=== PATIENT | male | born 1940 | race Caucasian/White ===

== ENCOUNTER 2018-12-16 13:18 | Inpatient (IN) | payer OTHER ==
[~2018-12-16] VITALS: Ht 182.9 cm; Wt 78.6 kg
--- NOTE | ~2018-12-16 | EMS ---
[address] [address] EMS Patient Care Report Name: DAKOTA DELGADILLO Room #: 201-P ADM IN M.R.#: [id number] Admission: 12/16/18 Attend Phys: Danny Saenz MD Discharge: Date of : 44 Report #: [id number] THIS REPORT FOR: //name// Report Transmitted: 12/16/2018 18:19 EMS Care Summary [facility] MED-ACT Incident [id number] @ 12/16/2018 12:37 Incident Location [address] [place] [address] Patient RICKY QUINN Male, 78 Years 1940 Patient Address [address] [place] [address] Patient History None Reported, Patient Allergies No known allergies, Patient Medications None Reported, Chief Complaint weakness Disposition Transported No Lights/[place] Dispatch Reason Stroke/CVA Transported To [facility] Narrative C weakness H Called after a friend came over and found him on the couch and needed help to the bathroom, while he was in there the friend went to clean up the couch since [address] [address] EMS Patient Care Report Name: DAKOTA DELGADILLO Room #: 201-P ADM IN Indira.#: [id number] Admission: 12/16/18 Attend Phys: Danny Saenz MD Discharge: Date of : 42 Report #: [id number] it reeked of old urine. Then the pt slid off of the toilet and needed help up again. He noticed he was very weak. the pt states he has been weak for several days and has had painful urination for about a week. He denies fever, chills, n/v, dark tarry or bloody stools, head ache, dizziness, c/p, sob, abd pain, injury from his fall A R assess vs moved to the stair chair then moved to the cot down 2 flights of stairs, then moved to the cot and in to the unit. 21 lead IV transport bio com no changes to [facility] ER 7 T transported to [facility] ER per pt request D wheeled in to the ER to bed 7 lifted over report to RN Initial Vitals @13:03P: 98,R: 28,BP: 162/103,GCS: 15,Temp: 98.9F,Glucose: 158,SpO2: 95,Revised Trauma: 12, @12:57P: 104,LA Suspected: false @12:42P: 108,R: 32,BP: 119/79,Pain: 0/10,GCS: 15,SpO2: 95,Revised Trauma: 11, @13:08P: 97,R: 24,BP: 162/103,GCS: 15,SpO2: 96,Revised Trauma: 12, Assessments @12:45MENTAL:Person Oriented,Time Oriented,Place Oriented,Event Oriented,SKIN:HEENT:Head/Face: No Abnormalities,LUNG SOUNDS:General: No Abnormalities,ABDOMEN:General: No Abnormalities,PELVIS//GI:Incontinence,EXTREMITIES:Left Arm: No Abnormalities,Right Arm: No Abnormalities,Left Leg: No Abnormalities,Right Leg: No Abnormalities,PULSE:NEURO:Abnormal Gait, Impression Generalized Weakness Procedures @12:5712-Lead ECGResponse: UnchangedSucceeded@12:58Saline Lock 10cc (20 ga) Site: Hand-LeftResponse: UnchangedSucceeded Timeline 12:36,Call Received 12:36,Psap Call 12:37,Dispatched 12:37,En Route 12:40,On Scene 12:42,At Patient 12:42,BP: 119/79 M,PULSE: 108,RR: 32 R,SPO2: 95 Ox,ETCO2: ,BG: ,PAIN: 0,GCS: [address] [address] EMS Patient Care Report Name: DAKOTA DELGADILLO Room #: 201-P ADM IN M.R.#: [id number] Admission: 12/16/18 Attend Phys: Danny Saenz MD Discharge: Date of : 44 Report #: [id number] 15, 12:57,12-Lead ECG,Response: UnchangedSucceeded, 12:57,BP: / M,PULSE: 104,RR: R,SPO2: Ox,ETCO2: ,BG: ,PAIN: ,GCS: , 12:58,Saline Lock 10cc 20 ga Site: Hand-Left,Response: UnchangedSucceeded, 13:00,Depart Scene 13:03,BP: 162/103 M,PULSE: 98,RR: 28 R,SPO2: 95 Ox,ETCO2: ,B,PAIN: ,GCS: 15, 13:08,BP: 162/103 M,PULSE: 97,RR: 24 R,SPO2: 96 Ox,ETCO2: ,BG: ,PAIN: ,GCS: 15, 13:23,At Destination 13:38,Call Closed Disclaimer v1.1 Copyright 2019 [employer] This EMS Care Summary contains data elements from the applicable legal record (which may be displayed differently). It is designed to provide pertinent information for the following purposes: continuity of care, clinical quality, and state data reporting. The complete legal record is available to ED staff and administrators of the receiving hospital in [employer]'s Patient Tracker. All data is provided "as is."
[2018-12-16 13:18] VITALS: BP 140/98
[~2018-12-16 13:18] MED LIST: LOTREL 5-10 MG1 EACH PO; NEXIUM40 MG; PHENERGAN 25 MG25 M1 PO; ZOFRAN ODT4 MG PO
[2018-12-16 13:41] LABS: ABSOLUTE NEUTROPHILS 13.4 thou/uL (1.4-8.2); BASOPHILS 0.5 % (0.0-2.0); EOSINOPHILS 0.1 % (0.0-3.0); HEMATOCRIT 46.1 % (42.0-52.0); HEMOGLOBIN 15.1 gm/dL (14.0-18.0); LYMPHOCYTES 5.1 % (24.0-44.0); MCH 26.4 pg (26.0-34.0); MCHC 32.8 g/dL (28.0-37.0); MCV 80.6 fL (80.0-100.0); MONOCYTES 11.3 % (1.0-8.0); PLATELET COUNT 294 thou/uL (150-400); RBC 5.72 mil/uL (4.50-6.00); RDW 15.5 % (10.5-14.5); WBC 16.1 thou/uL (4.0-11.0)
[2018-12-16 13:44] LABS: CALCIUM 9.5 mg/dL (8.5-10.1); CREATININE 3.3 mg/dL (0.7-1.3)
[2018-12-16 13:55] LABS: DIRECT BILIRUBIN 0.8 mg/dL (<0.1-0.3); TOTAL BILIRUBIN 1.8 mg/dL (<0.1-1.0); TOTAL PROTEIN 7.3 g/dL (6.4-8.2); TROPONIN-I 0.09 ng/mL (<0.06)
[2018-12-16 14:38] LABS: URINE BILIRUBIN NEGATIVE (Negative); URINE BLOOD 3+ (Negative); URINE CLARITY CLEAR; URINE COLOR YELLOW; URINE GLUCOSE-RANDOM* NEGATIVE (Negative); URINE KETONES NEGATIVE (Negative); URINE LEUKOCYTES-REFLEX TRACE (Negative); URINE NITRITE-REFLEX NEGATIVE (Negative); URINE PROTEIN (DIPSTICK) TRACE (Negative); URINE UROBILINOGEN 0.2 E.U./dl (0.2-1.0)
[2018-12-16 14:48] LABS: CASTS None Seen /LPF (None Seen); SQUAMOUS 4-10 Moderate /LPF (0-3); TRANSITIONAL EPITHEL CELL 4-10 Moderate /LPF (None Seen)
[2018-12-16 14:49] LABS: MUCUS >6 Heavy strn/LPF (None Seen)
[2018-12-16 14:51] LABS: BACTERIA-REFLEX 1-9 Few /HPF (None Seen); CRYSTALS None Seen /LPF (None Seen); URINE RBC >20 Many /HPF (0-2); URINE WBC-REFLEX 0-5 Rare /HPF (0-5)
[2018-12-16 16:06] VITALS: BP 161/100
[2018-12-16 16:14] LABS: PROT/CREAT RATIO 0.3; URINE CREATININE-RANDOM* 165.1 mg/dL; URINE PROTEIN-RANDOM* 47.6 mg/dL (<11.9)
[2018-12-16 16:50] VITALS: BP 158/102
--- NOTE | 2018-12-16 16:58 | NUR ---
REC PT FROM ED, TWO IVS, PT IS A&0X4, SLOW TO SPEAK, STILL LETHARGIC YET OPENS EYES WHEN SPOKEN TO. SHOWED HOW TO USE CALL LIGHT AND HE GAVE RETURN DEMO. SLIGHTLY BRUSING ON BLE UNKEMPT APPEARANCE, NO OPEN WOUNDS, CLEANED UNDER NAILS BEST WE COULD. CARDIAC MONITORING, SEE SEPARATE INTERVENTIONS FOR ASSESSMENTS. WILL CONTINUE TO MONITOR
--- NOTE | 2018-12-16 18:06 | EKG ---
[address] [place] [address] ELECTROCARDIOGRAM REPORT Name: DAKOTA DELGADILLO Room #: 201-P ADM IN M.R.#: [id number] Admission: 12/16/18 Attend Phys: Danny Saenz MD Discharge: Date of : 44 Report #: [id number] THIS REPORT FOR: //name// [facility] ED Test Date: 2018-12-16 Test Time: 13:22:53 Pat Name: DAKOTA DELGADILLO Department: Room: 201 Gender: M Coding Coordinator: JLAMBBARRERA : 1940 Requested By: German Luis Order Number: [id number] MD: Silvino Pham Measurements Intervals [place] Rate: 95 P: 56 W[place]: 142 QRS: -5 QRSD: 101 T: 55 QT: 386 QTc: 486 Interpretive Statements Sinus rhythm LVH with secondary repolarization abnormality Borderline prolonged QT interval Compared to ECG 11/02/2002 10:16:16 Left ventricular hypertrophy now present Early repolarization now present Electronically Signed On 12-16-2018 18:05:57 CDT by Silvino Pham [email or web address] <ELECTRONICALLY SIGNED> By: Silvino Pham MD 12/16/18 1805 1322 1322 Silvino Pham MD /EPI
[2018-12-16 20:02] VITALS: BP 126/76
--- NOTE | 2018-12-17 03:01 | NUR ---
PT LYING IN BED. MOTA IN PLACE. REMAINS INCONTINENT OF BOWEL. NO APPARENT PAIN. RESTING COMFORTABLY. NO NEEDS VOICED. CALL LIGHT WITHIN REACH. WILL CONTINUE TO PROVIDE FREQUENT OBSERVATION.
[2018-12-17 04:44] VITALS: BP 160/75
[2018-12-17 04:55] LABS: HEMATOCRIT 37.5 % (42.0-52.0); MCH 26.8 pg (26.0-34.0); MCHC 33.2 g/dL (28.0-37.0); MCV 80.9 fL (80.0-100.0); RBC 4.63 mil/uL (4.50-6.00); RDW 15.7 % (10.5-14.5)
[2018-12-17 04:56] LABS: HEMOGLOBIN 12.4 gm/dL (14.0-18.0)
[2018-12-17 05:12] LABS: CALCIUM 8.1 mg/dL (8.5-10.1)
[2018-12-17 05:15] LABS: POTASSIUM 2.7 mmol/L (3.5-5.1)
[2018-12-17 05:16] LABS: CREATININE 1.5 mg/dL (0.7-1.3)
[2018-12-17 07:10] VITALS: BP 184/81
[2018-12-17 11:05] VITALS: BP 141/74
[2018-12-17 13:30] VITALS: BP 141/70
--- NOTE | 2018-12-17 16:21 | NUR ---
ASSUMED CARE AT 0700, SHIFT ASSESSMENT DONE, MEDS GIVEN, VSS. DENIES PAIN, NAUSEA, VOMITING. ROOM AIR, NSR ON TELE. HAD A LIQUID STOOL TODAY, NO BLOOD NOTED. K+ LOW AT 2.7, REPLACEMENT PER ORDER. WILL CONTINUE TO ASSESS AND ASSIST WITH ADLs NEEDED.
[2018-12-17 19:44] VITALS: BP 164/85
--- NOTE | 2018-12-18 03:02 | NUR ---
A/O X 3.MAY BE FORGETFUL.ABDOMINAL PAIN CONTROLLED WITH TYLENOL.HAS HICCUPS.MOTA TO DD.RESTING IN BED AND APPEARS TO BE SLEEPING.MONITOR SHOWS SR.NO PACEMAKER SPIKES NOTED.WILL MONITOR AND CONTINUE POC.
[2018-12-18 03:41] VITALS: BP 173/85
[2018-12-18 05:32] LABS: CREATININE 1.1 mg/dL (0.7-1.3); POTASSIUM 3.3 mmol/L (3.5-5.1)
[2018-12-18 07:05] VITALS: BP 174/89
[2018-12-18 11:20] VITALS: BP 167/87
[2018-12-18 12:18] LABS: CALCIUM 8.9 mg/dL (8.5-10.1); CREATININE 1.1 mg/dL (0.7-1.3); POTASSIUM 3.6 mmol/L (3.5-5.1)
--- NOTE | 2018-12-18 14:36 | NUR ---
spoke with patient and son. Patient lives alone in split level home. He does not drive uses a walker inside home. Son reports he likely needs post acute care to gain strength for steps at home. His goal is to return home. Reviewed [employer] list referral to [facility].
[2018-12-18 15:15] VITALS: BP 162/74
--- NOTE | 2018-12-18 16:43 | NUR ---
FAXED REFERRAL TO [facility] SPOKE WITH MOHAN IN ADM SHE RECEIVED REFERRAL BUT CANNOT ACCEPT PT DUE TO INSURANCE OUT OF NETWORK. [facility] SPOKE WITH MAKENZIE IN ADM SHE RECEIVED REFERRAL AND CAN ACCEPT AND WILL SUBMIT FOR AUTH.DCP TO FOLLOW.
--- NOTE | 2018-12-18 17:20 | NUR ---
VSS REMAINS NSR , BP 164-164/73-89, LUNGS DIMINISHED O2 SAT RA IS 94-96%. GOOD UO MOTA, UP TO CHAIR AND BRP WITH WALKER,,ASSIST 1 VERY UNSTEADY ON FEET APPETITE FAIR, EATS 50% TRAYS. WILL CONTINUE TO MONITER AND CARE FOR PT PER PLAN OF CARE
[2018-12-18 19:30] VITALS: BP 155/93
[2018-12-19 05:08] VITALS: BP 157/82
--- NOTE | 2018-12-19 05:16 | NUR ---
ASSUMED PT AT 1900 WITH NO SIGN OF DISTRESS NOTED IN PT. PT IS AWAKE AND ALERT, NO FAMILY AT BEDSIDE. ASSESSMENT COMPLETED AND DOCUMENTED. FALL PRECAUTION IN PLACE. PT IS COMPLAINING ABOUT PAIN. PHYSICIAN NOTIFIED. PAIN MED ORDERED AND ADMINISTERED TO PT. SCHEULED MEDS ADMINISTERED TO PT. PT TOLERATED PO INTAKE, DENIES ANY FUTHER NEEDS AT THIS TIME. CONTINUE TO SHAYNE.
[2018-12-19 07:15] VITALS: BP 159/81
[2018-12-19 08:42] LABS: CREATININE 0.9 mg/dL (0.7-1.3); POTASSIUM 3.4 mmol/L (3.5-5.1)
[2018-12-19] MEDS ORDERED: LISINOPRIL20 MG PO (08:57)
[2018-12-19] MEDS ORDERED: HYDROCODON-ACE1 EAC7 PO (08:57)
[2018-12-19] MEDS ORDERED: ACETAMINOPHEN325 M1 PO (08:58)
[2018-12-19 11:10] VITALS: BP 144/79
--- NOTE | 2018-12-19 13:47 | NUR ---
Spoke with son regarding C not in network with patients [employer] policy. Agreeable for [facility] once they rec auth for transfer.
[2018-12-19 16:43] VITALS: BP 159/93
--- NOTE | 2018-12-19 17:40 | NUR ---
RECEIVED AUTH FOR SKILLED STAY AT [facility] FAXED DC ORDERS/SUMMARY TO FACILITY SPOKE WITH MAKENZIE IN ADM SHE RECEIVED DC ORDERS AND REQUESTING DA-124 WHICH WILL BE FAXED IN THE MORNING TO FACILITY. TRANSPORT ARRANGED FOR [id number] NOTIFIED PT'S SON JAIR OF DC AND TIME OF TRANSPORT (HE IS PT'S MAIN CONTACT). UNIT NOTIFIED AND CHART COPY PER US. RN TO CALL REPORT TO [phone].
--- NOTE | 2018-12-19 19:04 | NUR ---
ASSUMED CARE OF PT WITH NURSE SHREE RIVAS AT SHIFT CHANGE. ASSESSMENTS CHARTED BY NURSE SHREE RIVAS, MEDS GIVEN PER MAY. PT ALERT AND ORIENTED, O2 SATS WNL ON ROOM AIR. DENIES CHEST PAIN. DC ORDERS ACKNOWLEDGED AND IMPLEMENTED. REPORT CALLED TO FACILITY. MOTA REMOVED, IV REMOVED, TELE REMOVED. PT LEFT UNIT AT APPROX 1855 BY [facility].
--- NOTE | 2018-12-20 12:17 | NUR ---
[facility]ED DA[facility] TO [facility] SPOKE WITH MAKENZIE SHE RECEIVED FORM.
[2019-01-05] MEDS ORDERED: CIPRO500 M1 PO (16:50)
[2019-01-05] MEDS ORDERED: CULTURELLE KID1 EAC1 PO (16:51)
== END 2018-12-19 18:53 | DRG 683 ==
LOC: ER 13:18 → 2N 15:42 → EROBS 15:42 → 2N 16:45
PROVIDERS: Emergency Medicine; Hospitalist; ADMIT Family Medicine
DX: N17.9 Acute kidney failure, unspecified (principal); E44.1 Mild protein-calorie malnutrition; E86.0 Dehydration; E87.6 Hypokalemia; K58.0 Irritable bowel syndrome with diarrhea; M19.90 Unspecified osteoarthritis, unspecified site; Z88.2 Allergy status to sulfonamides
CPT/HCPCS: 10081

== ENCOUNTER 2019-01-10 15:06 | Inpatient (IN) | payer OTHER ==
[~2019-01-10] VITALS: Ht 182.9 cm; Wt 70.4 kg
--- NOTE | ~2019-01-10 | EMS ---
[address] [address] EMS Patient Care Report Name: DAKOTA DELGADILLO Room #: 363-P ADM IN M.R.#: [id number] Admission: 01/10/19 Attend Phys: Armond Elias MD Discharge: Date of : 42 Report #: [id number] THIS REPORT FOR: //name// Report Transmitted: 01/10/2019 21:17 EMS Care Summary [facility] MED-ACT Incident [id number] @ 01/10/2019 14:10 Incident Location [facility] [place] [address] Patient DAKOTA DELGADILLO Male, 78 Years 1940 Patient Address [facility] [place] [address] Patient History Hypertension,Kidney/Renal Failure,Gastro-Esophageal Reflux Disease (GERD), Patient Allergies No known allergies, Patient Medications Lisinopril, Chief Complaint I have been getting weaker Disposition Transported No Lights/[place] Dispatch Reason Sick Person Transported To [facility] Narrative This male patient is a resident of the assisted living facility at [facility]. He states that he has been feeling weaker for about the last three [address] [address] EMS Patient Care Report Name: DAKOTA DELGADILLO Room #: 363-P ADM IN MRenee.#: [id number] Admission: 01/10/19 Attend Phys: Armond Elias MD Discharge: Date of : 44 Report #: [id number]. The patient does not have a specific complaint. He denies chest pain, shortness of air, headache, nausea or vomiting. The staff state that he arrived here a few days ago from a stay at [facility] for the same problem, but did not have a diagnosis. The patient rests comfortably and is complaint free during transport. He is monitored with no changes enroute. The patient is taken to room 3 and report is given to nurse at bedside. Initial Vitals @14:42P: 80,SpO2: 97, @14:47P: 80,R: 16,BP: 123/73,Pain: 0/10,GCS: 15,SpO2: 97,Revised Trauma: 12, @14:37P: 78,R: 16,BP: 123/72,GCS: 15,Glucose: 144,SpO2: 97,Revised Trauma: 12, Assessments @14:30MENTAL:Person Oriented,Time Oriented,Event Oriented,Place Oriented,SKIN:HEENT:LUNG SOUNDS:General: No Abnormalities,ABDOMEN:General: No Abnormalities,PELVIS//GI:EXTREMITIES:PULSE:NEURO:No Abnormalities, Impression Generalized Weakness Timeline 13:58,Call Received 13:58,Psap Call 14:10,Dispatched 14:10,En Route 14:23,On Scene 14:25,At Patient 14:36,Depart Scene 14:37,BP: 123/72 M,PULSE: 78,RR: 16 R,SPO2: 97 Ox,ETCO2: ,B,PAIN: ,GCS: 15, 14:42,BP: / M,PULSE: 80,RR: R,SPO2: 97 Ox,ETCO2: ,BG: ,PAIN: ,GCS: , 14:47,BP: 123/73 M,PULSE: 80,RR: 16 R,SPO2: 97 Ox,ETCO2: ,BG: ,PAIN: 0,GCS: 15, 14:55,At Destination 15:17,Call Closed Disclaimer v1.1 Copyright 2019 [employer] This EMS Care Summary contains data elements from the applicable legal record (which may be displayed differently). It is designed to provide pertinent information for the following purposes: continuity of care, clinical quality, and state data reporting. The complete legal record is available to ED staff and administrators of the receiving hospital in [employer]'s Patient Tracker. All data [address] [address] EMS Patient Care Report Name: DAKOTA DELGADILLO Room #: 363-P ADM IN M.R.#: [id number] Admission: 01/10/19 Attend Phys: Armond Elias MD Discharge: Date of : 42 Report #: [id number] is provided "as is."
[~2019-01-10 15:06] MED LIST changes: +ACETAMINOPHEN325 M1 PO; +CIPRO500 M1 PO; +CULTURELLE KID1 EAC1 PO; +HYDROCODON-ACE1 EAC7 PO; +LISINOPRIL20 MG PO
[2019-01-10 15:07] VITALS: BP 131/77
[2019-01-10 15:36] LABS: HEMATOCRIT 39.6 % (42.0-52.0); HEMOGLOBIN 12.9 gm/dL (14.0-18.0); MCH 25.8 pg (26.0-34.0); MCHC 32.6 g/dL (28.0-37.0); PLATELET COUNT 606 thou/uL (150-400); RBC 5.02 mil/uL (4.50-6.00); RDW 16.3 % (10.5-14.5); WBC 18.9 thou/uL (4.0-11.0)
[2019-01-10 15:41] LABS: ANION GAP 17 mmol/L (7-16); BUN 115 mg/dL (7-18); CALCIUM 9.8 mg/dL (8.5-10.1); CHLORIDE 96 mmol/L (98-107); CO2 21 mmol/L (21-32); CREATININE 12.3 mg/dL (0.7-1.3); GLUCOSE 117 mg/dL (74-106); POTASSIUM 4.8 mmol/L (3.5-5.1); SODIUM 134 mmol/L (136-145)
[2019-01-10 15:47] LABS: ALBUMIN 2.5 g/dL (3.4-5.0); MAGNESIUM 2.3 mg/dL (1.8-2.4); SGOT 18 U/L (15-37); SGPT 19 U/L (30-65); TOTAL BILIRUBIN 0.5 mg/dL (<0.1-1.0)
[2019-01-10 15:55] LABS: URINE BILIRUBIN NEGATIVE (Negative); URINE BLOOD NEGATIVE (Negative); URINE CLARITY CLEAR; URINE COLOR YELLOW; URINE GLUCOSE-RANDOM* NEGATIVE (Negative); URINE KETONES NEGATIVE (Negative); URINE LEUKOCYTES-REFLEX TRACE (Negative); URINE NITRITE-REFLEX NEGATIVE (Negative); URINE PROTEIN (DIPSTICK) 3+ (Negative); URINE SPECIFIC GRAVITY <= 1.005 (1.005-1.035); URINE UROBILINOGEN 0.2 E.U./dl (0.2-1.0)
[2019-01-10 16:02] LABS: CASTS None Seen /LPF (None Seen); SQUAMOUS None Seen /LPF (0-3); TRIPLE PHOSPHATE CRYSTALS >10 Many /LPF (None Seen); URINE RBC >20 Many /HPF (0-2); URINE WBC-REFLEX 0-5 Rare /HPF (0-5)
[2019-01-10 16:12] LABS: TROPONIN-I <0.06 ng/mL (<0.06)
[2019-01-10 16:13] LABS: ABSOLUTE NEUTROPHILS 17.8 thou/uL (1.4-8.2); PLATELET ESTIMATE INCREASED
[2019-01-10] MEDS ORDERED: VITAMIN C500 M2 PO (16:49)
[2019-01-10] MEDS ORDERED: LIDODERM1 EACH TRANSDERM (16:52)
[2019-01-10] MEDS ORDERED: REMERON15 M2 PO (16:54)
[2019-01-10] MEDS ORDERED: SUPER THERAVIT1 EACH PO (16:55)
[2019-01-10] MEDS ORDERED: ZOLOFT25 MG PO (16:55)
--- NOTE | 2019-01-10 17:44 | EKG ---
[address] [address] ELECTROCARDIOGRAM REPORT Name: DAKOTA DELGADILLO Room #: 170-3 ADM IN M.R.#: [id number] Admission: 01/10/19 Attend Phys: Armond Elias MD Discharge: Date of : 42 Report #: [id number] THIS REPORT FOR: //name// [facility] ED Test Date: 2019-01-10 Test Time: 15:57:26 Pat Name: DAKOTA DELGADILLO Department: Room: 170 Gender: M Ice Carver: barrington : 1940 Requested By: Carter Haider Order Number: [id number] MD: Jamir Coffman Measurements Intervals [place] Rate: 71 P: 61 IA: 154 QRS: 9 QRSD: 105 T: 88 QT: 389 QTc: 423 Interpretive Statements Sinus rhythm No significant abnormality Compared to ECG 12/16/2018 13:22:53 ST segment abnormality is no longer present Electronically Signed On 01-10-2019 17:44:20 CDT by Jamir Coffman [email or web address] <ELECTRONICALLY SIGNED> By: Jamir Coffman MD, [facility] 01/10/19 1744 155 155 Jamir Coffman MD, [facility] /EPI
[2019-01-10 21:15] VITALS: BP 106/55
--- NOTE | 2019-01-10 21:20 | NUR ---
ED NURSE CALLED TO GIVE REPORT TO INPATIENT NURSE AND WAS TOLD THE PT HAS NOT YET BEEN ASSIGNED AND UNIT WILL CALL BACK FOR REPORT
[2019-01-10 22:19] VITALS: BP 144/80
[2019-01-11 00:13] VITALS: BP 144/76
--- NOTE | 2019-01-11 00:29 | NUR ---
PATIENT WAS A NEW ADMISSION TO THE UNIT THIS SHIFT. HE ARRIVED VIA CART FROM THE ER AND WAS TRANSFERRED TO THE BED WITHOUT INCIDENT. PATIENT IS ALERT AND ORIENTED, BUT VERY FLAT AND UNCOOPERATIVE WITH ADMISSION PROCESS. PATIENTS MOTA CATH SHOWING SIGNS OF BLEEDING WITH LARGE AMOUNT OF OUTPUT. NURSE TO COMPLETE ADMISSION PROCESS AND INITIATE CARE PLAN.
[2019-01-11 05:00] VITALS: BP 132/75
[2019-01-11 05:21] LABS: MCH 26.2 pg (26.0-34.0); MCHC 33.3 g/dL (28.0-37.0); MCV 78.9 fL (80.0-100.0); RBC 4.19 mil/uL (4.50-6.00); RDW 15.7 % (10.5-14.5); WBC 10.5 thou/uL (4.0-11.0)
[2019-01-11 05:36] LABS: ALBUMIN 1.8 g/dL (3.4-5.0); CALCIUM 8.9 mg/dL (8.5-10.1); POTASSIUM 3.9 mmol/L (3.5-5.1)
[2019-01-11 05:49] LABS: CREATININE 8.6 mg/dL (0.7-1.3)
[2019-01-11 07:55] VITALS: BP 142/67
--- NOTE | 2019-01-11 10:46 | NUR ---
ASSESSMENT: CM REVIEWED CHART AND MET WITH PATIENT AT THE BEDSIDE. PT WAS ADMITTED WITH MARIA EUGENIA/WEAKNESS. PT CAME INTO US FROM [facility] AND WAS RECENTLY AT [facility] FOR SNF. PT STATES HE NORMALLY WALKS INDEPDENTLY BUT DID HAVE A WALKER AT [facility]. PT REPORTS THAT PLANS ARE TO GO BACK TO [facility]. CM CONTACTED [facility] AND FAXED THEM UPDATED CLINICAL TO FAX: [phone]. CM ALSO SPOKE WITH PATIENTS SON JAIR TO CONFIRM INFORMATION AND HE STATES HE WILL BE UP AT THE HOSPITAL LATER TODAY OR TOMORROW. PT/OT EVALS ARE PENDING. CM WILL CONTINUE TO FOLLOW TO ASSIST NEEDED.
[2019-01-11 11:41] VITALS: BP 109/57
[2019-01-11 15:44] VITALS: BP 129/67
[2019-01-11 19:19] VITALS: BP 141/73
[2019-01-12 03:09] VITALS: BP 143/78
[2019-01-12 05:18] LABS: ALBUMIN 1.6 g/dL (3.4-5.0); CALCIUM 8.1 mg/dL (8.5-10.1); PHOSPHORUS 4.2 mg/dL (2.5-4.9); POTASSIUM 3.5 mmol/L (3.5-5.1)
[2019-01-12 05:25] LABS: CREATININE 4.2 mg/dL (0.7-1.3)
--- NOTE | 2019-01-12 07:00 | NUR ---
SLEPT MOST OF SHIFT. TURNS WITH MINIMAL ASSIST. MAINTAIN SAFE ENVIRONMENT. WORKING ON GOALS AND PLAN OF CARE FOR NOC. ENCOURAGED FLUIDS. URINE OUTPUT 2200 THIS SHIFT. NOT PROGRESSING TOWARDS DISCHARGE GOALS. CONTINUE TO ASSES CLOSELY.
[2019-01-12 07:50] VITALS: BP 144/68
[2019-01-12 11:33] VITALS: BP 139/87
[2019-01-12 12:06] LABS: KAPPA FREE LIGHT CHAINS 38.7 mg/L (3.3-19.4); KAPPA/LAMBDA RATIO 1.31 (0.26-1.65); LAMBDA FREE LIGHT CHAINS 29.6 mg/L (5.7-26.3)
--- NOTE | 2019-01-12 13:55 | NUR ---
on-going assessment: CM REVIEWED CHART AND SPOKE WITH PATIENTS SON. HE STATES HE REQUEST TO SPEAK TO THE PHYSICIAN TO ANSWER SOME OF HIS QUESTIONS. NATI REACHED OUT TO DR CAMERON TO PLEASE CONTACT PATIENTS SON. NATI DISCUSSED WITH PATIENTS SON/DPOA THAT ATTENDING IS RECOMMENDING SNF FOR PATIENT. NATI NOTIFIED ATTENDING THAT PT MAY BE IN HIS COPAY DAYS DUE TO RECENTLY BEING A [facility] A FEW WEEKS AGO. CM SPOKE WITH ADMISSIONS AT [facility] TO NOTIFY THE PATIENT IS LIKELY NEEDING SNF AT DISCHARGE AND PT HAS [employer]. [facility] DOES NOT HAVE A CONTRACT WITH [employer] FOR SNF BUT SINCE PATIENT IS FROM THAT FACILITY THEY ARE GOING TO SEE IF [employer] WILL GIVE A ONE TIME CONTRACT FOR SNF. NATI HAD VM FROM [facility] [place] IN ADMISSIONS THAT SHE HAD SUBMITTED INFORMATION TO [employer] TO SEE IF WE CAN GET INSURANCE AUTH. CM ALSO WAITING TO SEE IF PATIENT HAS A COPAY. PLANS CURRENTLY ARE TO DISCHARGE TO [facility] SNF PENDING INSURANCE AUTHORIZATION.
[2019-01-12 16:03] VITALS: BP 140/88
--- NOTE | 2019-01-12 18:01 | NUR ---
PT UP TO [facility] TODAY TO EAT LUNCH. PT DENIED PAIN OR SOA. WILL CONTINUE TO ASSESS.
[2019-01-12 20:25] VITALS: BP 148/77
[2019-01-13 03:20] VITALS: BP 169/77
--- NOTE | 2019-01-13 04:34 | NUR ---
SLEPT PART OF SHIFT, ASSISTED TO REPOSITION PRN. WATCHING TV WITHOUT COMPLAINTS. STATES HE LIKES TO WATCH TV AT [facility], WORKING ON GOALS AND PLAN OF CARE FOR NOC. TAKING FLUIDS WELL WITH ENCOURAGMENT. URINE OUTPUT REMAINS ADEQUATE. DENIES COMPLAINTS OF PAIN OR SHORTNESS OF AIR. DENIES NEED FOR HS SNACK. CONTINUE TO ASSES CLOSELY.
[2019-01-13 05:18] LABS: ALBUMIN 1.8 g/dL (3.4-5.0); CALCIUM 8.1 mg/dL (8.5-10.1); PHOSPHORUS 2.5 mg/dL (2.5-4.9); POTASSIUM 3.2 mmol/L (3.5-5.1)
[2019-01-13 05:30] LABS: CREATININE 1.9 mg/dL (0.7-1.3)
[2019-01-13 08:14] VITALS: BP 164/92
[2019-01-13 12:24] VITALS: BP 166/105
[2019-01-13 15:43] VITALS: BP 158/96
--- NOTE | 2019-01-13 17:11 | NUR ---
PT ALERT AND ORIENTED TIMES FOUR. VSS, 97%NAKUL GARCIA TO DD, SR ON TELE. PT DENIES PAIN/SOA. TO TOLERATES MEDS AND MEALS. PT PROGRESSING TOWRADS POC GOALS.
[2019-01-14 04:21] VITALS: BP 169/92
[2019-01-14 04:56] LABS: CALCIUM 8.4 mg/dL (8.5-10.1); CREATININE 1.3 mg/dL (0.7-1.3); POTASSIUM 3.6 mmol/L (3.5-5.1)
--- NOTE | 2019-01-14 05:30 | NUR ---
PT HAS MOTA WITH YELLOW URINE. DENIES ANY DISCOMFORTS THIS MORNING THOUGH HE DID COMPLAIN OF LLQ ABDOMINAL PAIN LAST NIGHT. DENIED NEEDING ANY PAIN MEDICATION, DENIED ANY NAUSEA. TAKING SMALL AMOUT OF PO FLUIDS. DID ASK AND WAS GIVEN CUP OF SODA OVERNIGHT.
[2019-01-14 12:05] VITALS: BP 179/109
--- NOTE | 2019-01-14 17:14 | NUR ---
PATIENT HAS SLEPT MOST OF THE DAY. HE DID HAVE A LARGE INCONT BM THIS AM. HE DOES APPEAR TO HAVE FLAT AFFECT. EATS VERY LITTLE. ENCOURAGED TO EAT TO NO AVAIL. HE IS HAS SLEPT MOST THE DAY. MOTA CATH IN PLACE AND DRAINING BLOOD TINGED URINE. WILL CONT WITH PLAN OF CARE.
[2019-01-14 17:22] VITALS: BP 173/99
[2019-01-14 20:04] VITALS: BP 149/97
--- NOTE | 2019-01-15 04:08 | NUR ---
PATIENT IS ALERT AND ORIENTED. PATIENT HAS FLAT AFFECT. PATIENT IS UP TIMES ONE WITH WALKER. PATIENT IS WEAK. PATIENT HAS A MOTA. PATIENT IS NSR ON TELE. PATIENT HAS POOR APPITITE. PATIENT NEEDS ENOCOURAGEMENT FOR PO INTAKE. PATIENT HAS BLOOD DISCHARGE FORM MOTA. PATIENT STATED HE DID NOT PULL ON MOTA. WCM. PATIENT IS PENDING DC SNF TODAY POSSIBLY WITH MOTA. NEEDS UROLOGY OUTPAITENT. LBM THE . PATIENT RESTING COMFORTABLY IN BED. PATIENT DID NOT SLEEP THIS SHIFT. WCM. PATIENT IS NOT PROGRESSING TO GOALS.
[2019-01-15 04:29] VITALS: BP 165/97
[2019-01-15 05:46] LABS: CALCIUM 8.1 mg/dL (8.5-10.1); CREATININE 1.2 mg/dL (0.7-1.3); POTASSIUM 4.1 mmol/L (3.5-5.1)
[2019-01-15 07:46] VITALS: BP 150/94
--- NOTE | 2019-01-15 10:42 | NUR ---
ON-GOING ASSESSMENT: CM REVIEWED CHART AND MET WITH PATIENT AT THE BEDSIDE. NATI SPOKE WITH JOSUE IN ADMISSIONS AT [facility] WHO REPORTS THEY HAVE INSURANCE AUTH TO ACCEPT PT TO SNF TODAY. CM SPOKE WITH PATIENTS SON TO NOTIFY HIM. NATI FAXED DISCHARGE ORDERS TO [facility] AND CONFIRMED THEY RECEIVED THEM. TRANSPORTATION HAS BEEN ARRANGED FROM 1230. CM NOTIFIED BEDSIDE RN AND PTS SON. BEDSIDE RN HAS THE NUMBER FOR REPORT. PT REPORTS NO FURTHER NEEDS FROM AT THIS TIME.
[2019-01-15 11:14] VITALS: BP 135/90
--- NOTE | 2019-01-15 12:41 | NUR ---
ASSUMED CARE OF PATIENT AT 0700. VSS. ALERT AND ORIENTED X4. PATIENT DISCHARGED AND PICKED UP BY TRANSPORTATION AT 1240.
--- NOTE | 2019-01-22 07:21 | HC ---
[facility] [place] [address] [place] [address] CONSULTATION Name: LEONADAKOTA MASTER Room #: 363-P [facility] IN M.R.#: [id number] Admission: 01/10/19 Attend Phys: Armond Elias MD Discharge: 01/15/19 Date of : 44 Report #: [id number] THIS REPORT FOR: //name// CC: Eduardo Elias DATE OF SERVICE: 01/10/2019 NEPHROLOGY CONSULTATION REASON FOR CONSULTATION: Renal failure. HISTORY OF PRESENT ILLNESS: This is a 78-year-old male who presented to the Emergency Room today after being sent in from his care center. He has had progressive weakness, lethargy, and had findings on initial laboratory evaluation of a creatinine level of 12. The patient was in the [facility] less than a month ago, that was from 12/16 through 12/19. At that time, he presented with failure to thrive. He had findings suggesting volume depletion. He had a low fractional excretion of sodium. He had a creatinine level of 3.3 on presentation. We did a renal ultrasound, which showed fairly normal-appearing kidneys, which were not obstructed at that time. He received several days of IV fluids. By discharge on 12/19/2018, his creatinine level was 0.9. He was discharged to a rehab center. His son tells me he was in that rehab center for a couple of weeks and 6 days ago from today, transferred to a Care Center as he was not able to go back home. At some point during those stays, he had a Devlin catheter placed that was with a leg bag. The patient is a poor historian and he really cannot tell me how much urine he has been passing. The son tells me he has not been taking much in the way of food or fluids. The patient states he has no appetite. He denies nausea or vomiting. He has had intermittent diarrhea/loose stools, although it does not sound like it is massive amounts. He presented today with a BUN of 115 and a creatinine of 12.3. Serum sodium was 134, potassium 4.8, bicarbonate 21. The patient complains of some abdominal fullness. He has early satiety. He takes nothing but sips of water according to the son. Review of medications shows that he has still been on lisinopril 20 mg daily, although it looks like at the [facility] center, he has gotten a combination of amlodipine and benazepril. The son states that the patient was administered the medications through the [facility] and the patient states that he takes his medicines. I cannot find any nephrotoxic exposures. No nonsteroidals. He is unaware of fever. PAST MEDICAL HISTORY: He had a recent admission as noted above. He has had some spastic colon-type symptoms. He has had previous diverticulitis. He has some hypertension. The son states that over the past few years, he has been much less active and over the past 6 months or so has been basically staying at home, not wanting to eat or drink. He has lost interest in activities. [address] [address] CONSULTATION Name: DAKOTA DELGADILLO Room #: 363-P [facility] IN M.R.#: [id number] Admission: 01/10/19 Attend Phys: Armond Elias MD Discharge: 01/15/19 Date of : 44 Report #: [id number] MEDICATIONS: Again, one list shows lisinopril 20 mg daily, the other shows amlodipine with benazepril 5/10 mg daily. Nexium 40 mg daily, vitamin C, Ciprofloxacin 500 mg b.i.d., Remeron 7.5 mg at bedtime, sertraline 25 mg daily, multivitamin daily. ALLERGIES: SULFA. FAMILY HISTORY: Noncontributory. SOCIAL HISTORY: The patient has recently been living in a care center. His son has recently become power of white sourer and provides the rest of the history. He is obviously very interested in his father's needs and care. REVIEW OF SYSTEMS: Poor appetite. Early satiety. Some complaint of abdominal distention. He is unaware of passing urine and he really cannot give me a history of when or why the Devlin was placed. He has a leg bag in place. He has had some lower extremity edema. Denies dyspnea or cough. He is unaware of fevers, chills or sweats. Per the son, he has extreme inanition. PHYSICAL EXAMINATION: GENERAL: Elderly-appearing male, awake and responsive, although lethargic. No acute distress. VITAL SIGNS: Blood pressure 131/77, heart rate 78, temperature is 36.3 degrees centigrade, respiratory rate 22, oxygen saturation 94%. HEENT: Shows pupils are 5 mm and reactive. Sclerae nonicteric. Oral mucosa is moist. NECK: Veins are not distended. Neck is supple. CHEST: Clear bilaterally. HEART: Has a regular rate and rhythm. No rub. ABDOMEN: Has bowel sounds, which are present on percussion and palpation. It appears that the bladder is distended at least to the umbilicus and he is somewhat tender in that location. This was later confirmed by portable ultrasound with a dramatically distended bladder in spite of having a catheter in place. EXTREMITIES: He has 2+ bilateral lower extremity edema. He has 2+ peripheral pulses. LABORATORY DATA: Sodium 134, potassium 4.8, chloride 96, bicarbonate 21, BUN 115, creatinine 4.3, glucose 95, total bilirubin 0.5, calcium 9.8, magnesium 2.3, AST 18, ALT 19, total protein 8.0, albumin 2.5. White count 18.9, hemoglobin 12.9, hematocrit 39.6, platelets 606,000. Urinalysis; specific gravity less than 1.005, pH greater than 9, 3+ protein, 0-5 white cells, greater than 20 red cells. ASSESSMENT: 1. Acute kidney injury. The history is significant for the creatinine to 3.3 a [facility] [address] [place] [address] CONSULTATION Name: DAKOTA DELGADILLO Room #: 363-P [facility] IN .R.#: [id number] Admission: 01/10/19 Attend Phys: Armond Elias MD Discharge: 01/15/19 Date of : 44 Report #: [id number] month ago, which got better down to 0.9 with some volume replacement, now is up to 12. He is obstructed because he has catheter in place, his bladder still distended. He needs a new catheter. His blood pressure is not low, he is not tachycardic and he had some peripheral edema all suggesting that this is not just volume depletion. The fact that he got this bad over 3 weeks would suggest he has got a very good chance of improving and correcting. At this point, we will get him a new Devlin catheter, get him draining. I will keep him on some IV fluids as he will have a postobstructive diuresis. We will have to see what happens with his edema. The one other factor that is a bit concerning is he has a very high globulin fraction with a total protein of 8 and an albumin of 2.5. We need to check for a paraprotein. We can check kappa lambda light chain ratio for that. 2. Leukocytosis. Not much pyuria. Cultures have been drawn. He will get broad spectrum antibiotics at this point. He is not febrile and does not appear septic. 3. Urinary retention as noted above. 4. Recent inanition. We will check thyroid studies. He could well be depressed as an elderly gentleman who has lost interest in doing most anything. Further help request within the primary team to sort this out. PLAN: 1. Replace catheter with a new Devlin. 2. Keep him on some IV fluids. 3. Follow up labs as I expect this will improve. 4. Check kappa lambda light chain ratio. 5. Check thyroid studies. 6. We will follow along the care of this patient. <ELECTRONICALLY SIGNED> By: Wilfrid Salvador MD 01/22/19 0721 [id number] Wilfrid Salvador MD /nt
== END 2019-01-15 12:51 | DRG 689 ==
LOC: ER 15:06 → 3W 17:22 → EROBS 17:22 → 3W 21:48
PROVIDERS: Emergency Medicine; Hospitalist; Internal Medicine Nephrology; ADMIT Family Medicine
DX: N39.0 Urinary tract infection, site not specified (principal); N17.0 Acute kidney failure with tubular necrosis; I10 Essential (primary) hypertension; N40.1 Benign prostatic hyperplasia with lower urinary tract symptoms; R33.8 Other retention of urine; F32.9 Major depressive disorder, single episode, unspecified; E87.6 Hypokalemia; R31.9 Hematuria, unspecified; F03.90 Unspecified dementia, unspecified severity, without behavioral disturbance, psychotic disturbance, mood disturbance, and anxiety; M19.90 Unspecified osteoarthritis, unspecified site; K58.9 Irritable bowel syndrome, unspecified; Z88.2 Allergy status to sulfonamides
CPT/HCPCS: 10879

== ENCOUNTER 2019-03-16 08:39 | Inpatient (IN) | payer OTHER ==
[~2019-03-16] VITALS: Ht 182.9 cm; Wt 70.8 kg
--- NOTE | ~2019-03-16 | EEG ---
[facility] [place] [address] [place] [address] ELECTROENCEPHALOGRAM Name: DAKOTA DELGADILLO Room #: 435-P ADM IN M.R.#: [id number] Admission: 03/16/19 Attend Phys: Armond Elias MD Discharge: Date of : 44 Report #: [id number] THIS REPORT FOR: //name// CC: Armond Elias DATE OF SERVICE: 03/19/2019 EEG REPORT REASON FOR STUDY: This patient is being evaluated for an episode of syncope. PROCEDURE: EEG was done by placing the electrode by standard 10-20 system of electrode placement. Both referential and sequential montages were used for recording. Background activity in this patient's EEG is about 10-11 Hz and 30 microvolts. The patient became drowsy that is associated with bilateral slowing. Photic stimulation is unremarkable. Throughout the record, no active epileptiform activity was noticed. IMPRESSION: This patient's EEG is unremarkable. Thank you very much for this referral. By: 1506 [id number] Steven Briseno MD /nt
[~2019-03-16 08:39] MED LIST changes: +LIDODERM1 EACH TRANSDERM; +REMERON15 M2 PO; +SUPER THERAVIT1 EACH PO; +VITAMIN C500 M2 PO; +ZOLOFT25 MG PO
[2019-03-16 08:40] VITALS: BP 107/60
[2019-03-16 09:12] LABS: HEMATOCRIT 35.6 % (42.0-52.0); HEMOGLOBIN 11.3 gm/dL (14.0-18.0); MCH 25.5 pg (26.0-34.0); MCHC 31.6 g/dL (28.0-37.0); MCV 80.7 fL (80.0-100.0); PLATELET COUNT 276 thou/uL (150-400); RBC 4.41 mil/uL (4.50-6.00); RDW 16.9 % (10.5-14.5); WBC 21.5 thou/uL (4.0-11.0)
[2019-03-16 09:24] LABS: CREATININE 1.4 mg/dL (0.7-1.3); POTASSIUM 3.3 mmol/L (3.5-5.1)
[2019-03-16 09:31] LABS: DIRECT BILIRUBIN 0.1 mg/dL (<0.1-0.2); TOTAL BILIRUBIN 0.8 mg/dL (<0.1-1.0); TOTAL PROTEIN 6.9 g/dL (6.4-8.2)
[2019-03-16 10:42] LABS: URINE BILIRUBIN NEGATIVE (Negative); URINE BLOOD 3+ (Negative); URINE CLARITY CLOUDY; URINE COLOR YELLOW; URINE GLUCOSE-RANDOM* NEGATIVE (Negative); URINE KETONES NEGATIVE (Negative); URINE PROTEIN (DIPSTICK) 2+ (Negative); URINE UROBILINOGEN 0.2 E.U./dl (0.2-1.0)
[2019-03-16 10:54] LABS: URINE LEUKOCYTES-REFLEX 3+ (Negative); URINE NITRITE-REFLEX POSITIVE (Negative)
[2019-03-16 11:59] LABS: ABSOLUTE NEUTROPHILS 16.6 thou/uL (1.4-8.2)
[2019-03-16 12:00] LABS: ANISOCYTOSIS 1+; MICROCYTES FEW
[2019-03-16 12:03] VITALS: BP 100/54
[2019-03-16 12:11] LABS: CASTS None Seen /LPF (None Seen); CRYSTALS None Seen /LPF (None Seen); SQUAMOUS None Seen /LPF (0-3); URINE WBC-REFLEX >25 Many /HPF (0-5)
[2019-03-16 12:12] LABS: BACTERIA-REFLEX >30 Many /HPF (None Seen); URINE RBC 3-10 Few /HPF (0-2)
--- NOTE | 2019-03-16 15:05 | EKG ---
[address] [address] ELECTROCARDIOGRAM REPORT Name: LEONADAKOTA Room #: 170-9 ADM IN M.R.#: [id number] Admission: 03/16/19 Attend Phys: Armond Elias MD Discharge: Date of : 44 Report #: [id number] THIS REPORT FOR: //name// [facility] ED Test Date: 2019-03-16 Test Time: 08:39:02 Pat Name: DAKOTA DELGADILLO Department: Room: 170 Gender: M Field Rep: EDY : 1940 Requested By: Selina Schwab Order Number: [id number] MD: Silvino Pham Measurements Intervals [place] Rate: 70 P: 63 WA: 161 QRS: 13 QRSD: 105 T: 72 QT: 446 QTc: 482 Interpretive Statements Sinus rhythm Probable left ventricular hypertrophy Anterior Q waves, possibly due to LVH Compared to ECG 01/10/2019 15:57:26 Left ventricular hypertrophy now present Q waves now present Electronically Signed On 03-16-2019 15:04:43 PAN GREASER by Silvino Pham [email or web address] <ELECTRONICALLY SIGNED> By: Silvino Pham MD 03/16/19 1504 [id number] Silvino Pham MD /EPI
[2019-03-16 16:58] VITALS: BP 128/65
[2019-03-16 17:15] VITALS: BP 148/89
--- NOTE | 2019-03-16 18:27 | NUR ---
[age] YE[age] OLD MALE ADMITTED TO [facility] ROOM 354. PT WAS ADMITTED FROM [facility] AFTER FALLING TODAY WITH A LOC FOR 30 SEC. PT NOW ALERT AND ORIENTED TIMES FOUR, BUT SOMEWHAT SLOW TO RESPOND TO QUESTIONS. VSS, IVF INFUSING PER ORDER. DENIES PAIN/SOA AT THIS TIME. PT TOLERATED DINNER. WILL CONTINUE TO MONITOR.
[2019-03-16 19:22] VITALS: BP 119/63
[2019-03-17 00:11] VITALS: BP 144/70
[2019-03-17 03:22] VITALS: BP 122/62
--- NOTE | 2019-03-17 04:21 | NUR ---
ASSUMED CARE AT 1900. PT LETHARGIC, SLEEPING MUCH OF THE SHIFT. WHILE ASKING QUESTIONS ABOUT ASSISTIVE DEVICES, PT DEVELOPED A BLANK STARE WITH SMALL, FIXED PUPILS, LASTING ABOUT A MINUTE; PT THEN GRADUALLY MORE ALERT BUT SLOW TO ANSWER QUESTIONS. CHRONIC MOTA HAD DARK YELLOW URINE WITH LARGE AMOUNTS OF SEDIMENT. HAS BEEN SR WITH A BBB AND HR IN 60'S OVERNIGHT. IVF INFUSING. NO OTHER CONCERNS, WILL CONTINUE TO MONITOR.
[2019-03-17 07:34] VITALS: BP 144/73
[2019-03-17 09:06] LABS: HEMATOCRIT 31.6 % (42.0-52.0); HEMOGLOBIN 10.2 gm/dL (14.0-18.0); MCHC 32.2 g/dL (28.0-37.0); MCV 80.6 fL (80.0-100.0); RBC 3.92 mil/uL (4.50-6.00); RDW 17.1 % (10.5-14.5); WBC 9.6 thou/uL (4.0-11.0)
[2019-03-17 09:15] LABS: CALCIUM 8.9 mg/dL (8.5-10.1); POTASSIUM 3.4 mmol/L (3.5-5.1)
[2019-03-17 15:37] VITALS: BP 129/77
--- NOTE | 2019-03-17 17:24 | NUR ---
PT FELL AT HIS FACILITY [facility] SO HE IS A HIGH FALL RISK...FALL PREC IN PLACE...DOES NOT APPEAR TO BE IMPULSIVE..
[2019-03-17 19:07] VITALS: BP 148/75
[2019-03-18 03:34] VITALS: BP 172/81
--- NOTE | 2019-03-18 06:12 | NUR ---
ASSUMED CARE AT 1900. PT MORE ALERT THIS SHIFT, ORIENTED TO SELF, PLACE, AND SITUATION BUT DID NOT KNOW THE DATE/TIME OF YEAR. NO ABNORMAL CHANGE IN LOC OVERNIGHT. DENIES PAIN, NAUSEA, OR SOB. MOTA DRAINING MUCH CARDIOLOGY MANAGER URINE WITH MUCH LESS SEDIMENT PRESENT. NO FUTHER CONCERNS, WILL CONTINUE TO MONITOR.
[2019-03-18 06:48] VITALS: BP 188/83
[2019-03-18 15:34] VITALS: BP 165/86
--- NOTE | 2019-03-18 19:24 | NUR ---
PT FEELING BETTER TODAY...DENIES VERTIGO...PLANS FOR D/C TOMORROW TO [facility]...
[2019-03-18 19:40] VITALS: BP 156/74
--- NOTE | 2019-03-18 22:16 | NUR ---
PT RESTING IN BED WATCHING TV, GLASSES ON, BED ALARM ON. NAKUL TO BRANDON. [facility] EYE CONTACT, FLAT AFFECT, ANSWERS QUESTIONS DIRECTLY. EEG IN AM.
[2019-03-19 03:16] VITALS: BP 163/87
--- NOTE | 2019-03-19 05:46 | NUR ---
REPORT CALLED TO 4S. SON LEFT VMAIL RE ROOM CHANGE. PT VERBALIZED UNDERSTANDING.
[2019-03-19] MEDS ORDERED: CEFDINIR300 MG PO (07:18)
[2019-03-19 07:28] VITALS: BP 163/87
[2019-03-19 07:30] VITALS: BP 179/95
--- NOTE | 2019-03-19 08:07 | NUR ---
PT ARRIVED ON UNIT FROM 3W AT 0600.
--- NOTE | 2019-03-19 10:45 | NUR ---
PT CARE ASSUMED AT 0700. PT IV IS PATENT, WITH NO EDEMA OR REDNESS. PT MOTA IS IN PLACE STAT LOCKED AND PATENT. PER DR. CAMERON PT IS TO HAVE AN EEG TODAY IF THIS DOES NOT HAPPEN BY THE TIME HE IS TO DISCHARGE IT IS OK TO CANCEL SAID EEG. PT IS DICHARGING TO [facility] TODAY SOON THE ISSUE OF EITHER MEMORY CARE OR SKILLED FACILITY IS CLEARED. PT IS UP WITH ONE ASSIST WALKER AND GAITE BELT. PT HAS BATHROOM PRIVLIDGES. PT IS PLEASANT AND AWAITING DISCHARGE. PT SON CAME BY THIS MORNING TO BRING CLEAN CLOTHES FOR HIS FATHER AND WOULD LIKE A PHONE CALL WHEN PT IS DISCHARGING (JAIR [phone]). BED IS IN LOW POSITION, LOCKED, WITH BED ALARM IN PLACE. CALL LIGHT IN REACH. PT WOULD ALSO LIKE A FLU SHOT BEFORE DISCHARGING TODAY.
[2019-03-19 11:54] VITALS: BP 148/82
--- NOTE | 2019-03-19 15:29 | NUR ---
FAXED REFERRAL FOR SKILLED STAY TO [facility] PT IS LTC THERE. RECEIVED CONFIRMATION AND LEFT MSG WITH JENNIFER IN ADM. DP TO FOLLOW.
--- NOTE | 2019-03-19 16:48 | NUR ---
ASSESSMENT-PT LIVES IN ASSISTED LIVING AT [facility]. S/W LITO THERE & SHE TELLS ME PT USES A WALKER TO GET AROUND, THEY ASSIST HIM WITH BATHING AND DRESSING AND TO THE DINING AREA. S/W PT'S SON BY PHONE AND HE SAYS PT ELISE AND WATCHES TV MOST ALL OF THE TIME. HE SAYS FACILITY CHECKS ON HIM EVERY 2 HRS. THERAPIES WERE ORDERD TO SEE PT AND LITO FROM [place] THINKS PT NEEDS TO GO TO SKILLED BEFORE RETURNING TO THEM. ASKED DC SUBSURFACE AUGMENTEE ELINT OPERATOR TO FAX REFERRAL TO [facility] SKILLED. S/W SON JAIR TO INFORM HIM WELL.
[2019-03-19 19:15] VITALS: BP 136/81; BP 163/81
--- NOTE | 2019-03-19 22:40 | NUR ---
ASSUMED PT CARE AT 1900. PT IS PLEASANT WITH NURSE. ALERT & ORIENTED, JUST CONFUSED. PER REPORT FROM AM NURSE, PT WILL NOT BE GOING TO [facility]. AWAITING INSURANCE APPROVAL FOR SNF. CATHETER PATENT. RESTING COMFORTABLY IN BED WATCHING TV.
[2019-03-20 04:30] VITALS: BP 172/90
[2019-03-20 09:04] VITALS: BP 193/83
--- NOTE | 2019-03-20 10:34 | NUR ---
FAXED REFERRAL TO [facility] FOR SKILLED STAY SPOKE WITH JOSUE IN ADM SHE RECEIVED REFERRAL AND SUBMITTED FOR AUTH AND THAT PT TO DC TODAY IF SHE GETS AUTH. DP TO FOLLOW.
--- NOTE | 2019-03-20 18:00 | NUR ---
PT ASSESSED AT START OF SHIFT. AMBULATING W/ WALKER W/ THERAPY. UP IN THE CHAIR MOST OF SHIFT. EATING AND DRINKING WELL. NO C/O PAIN.
[2019-03-20 18:13] VITALS: BP 128/72
[2019-03-20 19:26] VITALS: BP 149/78
--- NOTE | 2019-03-21 02:34 | NUR ---
PT RESTING QUIETLY IN ROOM. NO C/O PAIN. WATCHING TV. SEING PT/OT DAILY.MOTA INTACT. HAS SLEPT WELL THROUGH THE NIGHT TO THIS POINT IN THE AM
[2019-03-21 07:57] VITALS: BP 171/82
--- NOTE | 2019-03-21 09:52 | NUR ---
PT. CARE ASSUMED AT 0700. PT IS TO DISCHARGE BACK TO [facility] ON THE SKILLED SIDE. PT HAS A CHRONIC MOTA IN PLACE. BP IS ELEVATED WITH BP MEDS GIVEN. IV'S ARE BOTH PATENT, WITH NO REDNESS OR EDEMA. PT AND OT ON BOARD. PATIENT IS RESTING IN HIS ROOM. BED IN LOW POSITION WITH BEDALARM IN PLACE AND LOCKED. CALL LIGHT IN REACH
[2019-03-21 17:43] VITALS: BP 107/86
[2019-03-21 20:00] VITALS: BP 156/84
--- NOTE | 2019-03-22 04:12 | NUR ---
PATIENT ALERT AND ORIENTED X4 BUT FORGETFUL AND SOMEWHAT CONFUSED. MOTA PATENT CLEAR YELLOW URINE. TWO IV SITES. ONE IN EACH AC. DENIES PAIN. SLEPT MOST OF NIGHT.
[2019-03-22 04:27] VITALS: BP 167/87
[2019-03-22 07:25] VITALS: BP 172/76
[2019-03-22 09:10] VITALS: BP 172/76
--- NOTE | 2019-03-22 11:44 | NUR ---
PT. CARE ASSUMED AT 0700. A&Ox3 PERSON, PLACE,TIME. PT AWAITING INSURANCE APPROVAL FOR SNF AT [facility]. IV PATENT WITH NO REDNESS OR EDEMA. ABX INFUSING. PT SON WAS VISITING TODAY AND INQUIRED ABOUT STANDING OF PLACEMENT. SON UPDATED. PT IS SITTING IN RECLINER. OT ON BOARD. CALL LIGHT IN REACH
--- NOTE | 2019-03-22 12:42 | NUR ---
SPOKE WITH JOSUE IN ADM SHE RECEIVED AUTH FOR SKILLED STAY FAXED DC ORDERS/SUMMARY TO FACILITY RECEIVED CONFIRMATION AND JOSUE IN ADM ARRANGED TRANSPORT BY [facility] FOR 1500 TODAY. LEFT MSG WITH PT'S SON (JAIR) OF DC AND TIME OF TRANSPORT. UNIT NOTIFIED AND CHART COPY PER US. RN TO CALL REPORT TO [phone].
== END 2019-03-22 16:52 | DRG 871 ==
LOC: ER 08:39 → 4S 12:01 → EROBS 12:01 → 3W 16:58 → 4S 03-19 05:50
PROVIDERS: Emergency Medicine; ADMIT Family Medicine
DX: A41.9 Sepsis, unspecified organism (principal); G93.41 Metabolic encephalopathy; N39.0 Urinary tract infection, site not specified; N17.9 Acute kidney failure, unspecified; F03.90 Unspecified dementia, unspecified severity, without behavioral disturbance, psychotic disturbance, mood disturbance, and anxiety; M19.90 Unspecified osteoarthritis, unspecified site; K08.409 Partial loss of teeth, unspecified cause, unspecified class; I95.9 Hypotension, unspecified; I10 Essential (primary) hypertension; Z23 Encounter for immunization; Z88.2 Allergy status to sulfonamides; Z79.899 Other long term (current) drug therapy
CPT/HCPCS: 10102; 10779

== ENCOUNTER 2019-04-17 09:17 | Inpatient (IN) | payer OTHER ==
[2019-04-17] VITALS (15 sets, daily range): BP systolic 55–153; BP diastolic 31–85
[~2019-04-17] VITALS: Ht 185.4 cm; Wt 78.5 kg
--- NOTE | ~2019-04-17 | HC ---
[facility] [place] [address] [place] [address] CONSULTATION Name: LEONADAKOTA MASTER Room #: 242-P [facility] IN M.R.#: [id number] Admission: 04/17/19 Attend Phys: Armond Elias MD Discharge: 04/17/19 Date of : 44 Report #: [id number] THIS REPORT FOR: //name// CC: Grey Elias DATE OF SERVICE: 04/17/2019 HISTORY OF PRESENT ILLNESS: The patient is a 79-year-old male whom I was asked to see in the Emergency Room with an elevated troponin. Apparently came in unresponsive and subsequently intubated by Emergency Room. He was found unresponsive by the nursing staff at [facility]. There are limited old records available here. He had initial troponin of 128 and the repeat was in the 80s, but the echo Doppler looks to be essentially normal. There is also a significant elevated lactate level and acidosis. I suspect this is septic shock, hypotension, maxed out on Levophed at this point with still systolic pressure in the 60s. This is patient of Dr. Elias's who has seen him and subsequently had some talk with the family of being DNR. He has been also given 3 liters of fluid. Does not look like he has any significant cardiac history. As I stated, the echo Doppler at least preliminary looks relatively normal considering the situation. PAST MEDICAL HISTORY: Positive for some dementia, depression, hypertension, diverticulitis, osteoarthritis, spastic colon, irritable bowel. MEDICATIONS: It looks like the medications at the facility were lisinopril, hydrocodone and possibly an antibiotic Omnicef. Also, vitamin C, Remeron, Zoloft, HCTZ, multivitamin. ALLERGIES: SULFA. SOCIAL HISTORY: He has family. No tobacco or alcohol use. REVIEW OF SYSTEMS: Not obtainable. LABORATORY DATA: EKG is some lateral ST depression, sinus rhythm. Blood gas, pH was 7.054. Lactate 15.39 and repeat was 19.5, potassium 3.0, sodium 147. H and H was 9.[address] of his head, no acute hemorrhage or intracranial abnormality. Should also note, his blood sugar was severely depressed initially. PHYSICAL EXAMINATION: GENERAL: He is intubated. He responds only to suction on the ventilator, systolic pressures in the 60s. His pulse is 70s. HEENT: He looked somewhat disheveled with a parker. He is intubated. [facility] [address] [place] [address] CONSULTATION Name: DAKOTA DELGADILLO Room #: 242-P [facility] IN [facility]#: [id number] Admission: 04/17/19 Attend Phys: Armond Elias MD Discharge: 04/17/19 Date of : 44 Report #: [id number] mucous membranes. NECK: Veins are not impressive. Carotids are palpable. LUNGS: Clear anteriorly. CARDIOVASCULAR: S1, S2. Systolic ejection murmur is noted. ABDOMEN: Slightly distended. Bowel sounds are present. EXTREMITIES: Reveal trace edema. There is a long severe fungal nails noted on his nailbeds in his feet. Distal pulses are diminished. SKIN: Otherwise warm and dry. MUSCULOSKELETAL: Generalized arthritic changes. NEUROLOGIC: Not responsive. ASSESSMENT: 1. Suspect septic shock with lactic acidosis, possibly some ischemic gut or overwhelming infection. 2. Elevated troponin of unclear etiology with an echo Doppler showing preserved LV function without significant valve issue. Troponin 128 down and down to the 80s. 3. Hypertension. 4. History of diverticulitis. 5. Progressive dementia by history. 6. Degenerative joint disease. RECOMMENDATIONS AND PLAN: Levophed pressor support. I will discuss with Dr. Elias but he is discussing with the family about DNR status. Certainly, this prognosis would be very guarded and grim. We could offer more pressors, but I am not sure it is the endpoint here if it would make a difference. We will discuss with Dr. Elias on the family wishes. Thank you for asking me to assist in the care of this patient. By: [id number] /nt
[~2019-04-17 09:17] MED LIST changes: +CEFDINIR300 MG PO
[2019-04-17 09:34] LABS: BE(vivo) -22.8 mmol/L (-2 to +3); HCO3 4.9 mmol/L (22.0-26.0); PO2 82.9 mmHg (80.0-100.0); sO2 92.3 % (92.0-98.0)
[2019-04-17 09:35] LABS: PCO2 16.3 mmHg (35.0-45.0); pH 7.098 (7.360-7.450)
[2019-04-17 09:39] LABS: HEMATOCRIT 33.1 % (42.0-52.0); HEMOGLOBIN 9.8 gm/dL (14.0-18.0); MCH 26.1 pg (26.0-34.0); MCHC 29.5 g/dL (28.0-37.0); MCV 88.5 fL (80.0-100.0); PLATELET COUNT 125 thou/uL (150-400); RBC 3.74 mil/uL (4.50-6.00); RDW 18.2 % (10.5-14.5)
[2019-04-17 09:54] LABS: CALCIUM 8.8 mg/dL (8.5-10.1); CREATININE 4.3 mg/dL (0.7-1.3)
[2019-04-17 10:16] LABS: TROPONIN-I 128.82 ng/mL (<0.06)
[2019-04-17 11:01] LABS: ABSOLUTE NEUTROPHILS 25.9 thou/uL (1.4-8.2); ANISOCYTOSIS 2+; METAMYELOCYTES 10 %; MYELOCYTES 1 %; PLATELET ESTIMATE NORMAL
[2019-04-17 11:13] LABS: BE(vivo) -23.2 mmol/L (-2 to +3); HCO3 5.5 mmol/L (22.0-26.0); PO2 133.2 mmHg (80.0-100.0); sO2 97.4 % (92.0-98.0)
[2019-04-17 11:14] LABS: PCO2 20.1 mmHg (35.0-45.0); pH 7.054 (7.360-7.450)
[2019-04-17 11:46] LABS: URINE BLOOD 3+ (Negative); URINE CLARITY CLOUDY; URINE COLOR RED; URINE GLUCOSE-RANDOM* NEGATIVE (Negative); URINE KETONES TRACE (Negative); URINE PROTEIN (DIPSTICK) 3+ (Negative)
[2019-04-17 11:47] LABS: ICTOTEST (BILI CONFIRMATORY) Negative (Negative); URINE BILIRUBIN NEGATIVE (Negative); URINE LEUKOCYTES-REFLEX 3+ (Negative); URINE NITRITE-REFLEX POSITIVE (Negative)
[2019-04-17 11:50] LABS: AMORPHOUS URATES Moderate /LPF (None Seen); CASTS None Seen /LPF (None Seen); SQUAMOUS None Seen /LPF (0-3); URINE RBC >20 Many /HPF (0-2); URINE WBC-REFLEX >25 Many /HPF (0-5)
[2019-04-17] MEDS ORDERED: HYDROCHLOROTHIA25 M2 PO (11:58)
--- NOTE | 2019-04-17 12:16 | NUR ---
VASCULAR ACCESS TEAM CONSULTED FOR CVAD. PT'S LABS,MEDS,ORDER AND CONSENT VERIFIED. DISCUSSED BENEFITS AND RISKS OF CVAD WITH PT'S SON,VERBALIZED UNDERSTANDING. RIJ WAS WIDELY PATENT WITH USG. 6FR TL POWER JACC 25CM INSERTED TO 8CM EXTERNAL. STAT CXR ORDERED
--- NOTE | 2019-04-17 12:20 | NUR ---
RIJ RELEASED FOR IMMEDIATE USE PER PROTOCOL. CXR RESULTS SVC.
--- NOTE | 2019-04-17 13:39 | 2DMMODE ---
[facility] [address] [address] 2 D/M-MODE ECHOCARDIOGRAM Name: DAKOTA DELGADILLO Room #: 170-12 ADM IN M.R.#: [id number] Admission: 04/17/19 Attend Phys: Armond Elias, Discharge: Date of : 44 Report #: [id number] THIS REPORT FOR: //name// APPROVED REPORT Study performed: 04/17/2019 10:40:33 EXAM: Comprehensive 2D, Doppler, and color-flow Echocardiogram Patient Location: ER Room #: 12 Status: stat BSA: 2.05 HR: 85 bpm BP: 71/35 mmHg Rhythm: NSR Other Information Study Quality: Technically Limited Indications Hypotension 2D Dimensions IVC: 23.00 mm Tricuspid Valve TR Peak Pan.: 2.41 m/s TR Peak Gr.: 23.15 mmHg PA Pressure: 33.00 mmHg Left Ventricle The left ventricle is normal size. There is normal LV segmental wall motion. There is normal left ventricular wall thickness. Left ventricular systolic function is normal. The left ventricular ejection fraction is within the normal range. LVEF is 55-60%. This study is not technically sufficient to allow evaluation of the LV diastolic function. Right Ventricle The right ventricle is normal size. The right ventricular systolic function is normal. Atria The left atrium size is normal. The right atrium size is normal. [facility] [address] [address] 2 D/M-MODE ECHOCARDIOGRAM Name: DAKOAT DELGADILLO Room #: 170-12 ADM IN M.R.#: [id number] Admission: 04/17/19 Attend Phys: Armond Elias, Discharge: Date of : 44 Report #: [id number] Aortic Valve The aortic valve is mildly calcified. No aortic regurgitation is present. There is no aortic valvular stenosis. Mitral Valve The mitral valve is normal in structure. Trace mitral regurgitation. No evidence of mitral valve stenosis. Tricuspid Valve The tricuspid valve is normal in structure. There is trace tricuspid regurgitation. Estimated PAP 30 mmHg. There is mild pulmonary hypertension. Pulmonic Valve The pulmonary valve is normal in structure. There is no pulmonic valvular regurgitation. Great Vessels The aortic root is normal in size. IVC is dilated and collapses <50% with inspiration. Pericardium There is no pericardial effusion. <Conclusion> Left ventricular systolic function is normal. There is normal LV segmental wall motion. LVEF is 55-60%. The aortic valve is mildly calcified. No aortic regurgitation or stenosis. The mitral valve is normal in structure. Trace mitral regurgitation. There is trace tricuspid regurgitation. Estimated pulmonary artery pressure of 30 mmHg. There is no pericardial effusion. <ELECTRONICALLY SIGNED> By: Jamir Coffman MD, [facility] 04/17/19 1339 D: [id number] Jamir Coffman MD, FACC /INF
--- NOTE | 2019-04-17 15:50 | NUR ---
SPOKE WITH SON(DPOA) WHO INSTRUCTED THAT HE WILL WANT TO WOTHDRAW CARE THIS AFTERNOON AFTER ALL FAMILY AND FRIENDS HAVE SEEN PT. PAGED TO PT'S ROOM TO BE WITH FAMILY. WILL CONTINUE TO ASSESS.
--- NOTE | 2019-04-17 16:28 | NUR ---
CALLED [facility] AND REFERRAL NUMBER GIVEN.
--- NOTE | 2019-04-17 17:39 | NUR ---
[facility] CALLED AND REQUEST CALL BACK PRIOR TO WITHDRAWAL CARE.
--- NOTE | 2019-04-17 18:50 | NUR ---
PT EXTUBATED AND IV PRESSOR WILL BE DISCONRINUED. PT ON 2LNC WILL MAINTAIN VERSED GTT.
--- NOTE | 2019-04-17 23:10 | NUR ---
PT AT 04/17/2019 2020 PM. PT FAMILY AT BEDSIDE. [facility] NOTIFIED ABOUT PT . PT NOT A CANDIDATE FOR TISSUE OR ORGAN DONATION. DR. CAMERON AND DR. SILVA NOTIFIED. VOICEMAIL WAS LEFT FOR DR. GOMEZ REGARDING PT'S . PT HAD NO BELONGINGS. PT FAMILY WAS INFORMED TO NOTIFY SECURITY ABOUT HOME.
--- NOTE | 2019-04-18 07:53 | EKG ---
[address] [place] [address] [place] [address] ELECTROCARDIOGRAM REPORT Name: ANTONETTE DELGADILLOIP MASTER Room #: 242-P [facility] M.R.#: [id number] Admission: 04/17/19 Attend Phys: Armond Elias MD Discharge: 04/17/19 Date of : 44 Report #: [id number] THIS REPORT FOR: //name// [facility] ED Test Date: 2019-04-17 Test Time: 09:22:29 Pat Name: DAKOTA DELGADILLO Department: Room: [facility] Gender: M Wheelage Clerk: KMD : 1940 Requested By: Harry Freeman Order Number: [id number] MD: Jamir Coffman Measurements Intervals [place] Rate: 89 P: 99 NV: 176 QRS: 13 QRSD: 93 T: 177 QT: 405 QTc: 493 Interpretive Statements Sinus rhythm Repol abnrm, severe global ischemia (LM/MVD) Compared to ECG 03/16/2019 08:39:02 ST segment abnormality is more prominent Electronically Signed On 04-18-2019 7:53:04 PROSTHETIST by Jamir Coffman [email or web address] <ELECTRONICALLY SIGNED> By: Jamir Coffman MD, [facility] 04/18/19 0753 0922 0922 Jamir Coffman MD, [facility] /EPI
== END 2019-04-17 20:20 | DRG 871 ==
LOC: ER 09:17 → EROBS 12:57 → ICU 13:58
PROVIDERS: Emergency Medicine; ADMIT Family Medicine
PROC: 5A1935Z Respiratory Ventilation, Less than 24 Consecutive Hours (ICD-10-PCS; principal; 2019-04-17)
PROC: 0BH17EZ Insertion of Endotracheal Airway into Trachea, Via Natural or Artificial Opening (ICD-10-PCS; principal; 2019-04-17)
PROC: 05HM33Z Insertion of Infusion Device into Right Internal Jugular Vein, Percutaneous Approach (ICD-10-PCS; principal; 2019-04-17)
DX: A41.9 Sepsis, unspecified organism (principal); R65.21 Severe sepsis with septic shock; J96.90 Respiratory failure, unspecified, unspecified whether with hypoxia or hypercapnia; N17.9 Acute kidney failure, unspecified; N39.0 Urinary tract infection, site not specified; E87.2 Acidosis; K08.109 Complete loss of teeth, unspecified cause, unspecified class; K58.9 Irritable bowel syndrome, unspecified; M19.90 Unspecified osteoarthritis, unspecified site; I10 Essential (primary) hypertension; N40.0 Benign prostatic hyperplasia without lower urinary tract symptoms; F03.90 Unspecified dementia, unspecified severity, without behavioral disturbance, psychotic disturbance, mood disturbance, and anxiety; Z66 Do not resuscitate; R79.89 Other specified abnormal findings of blood chemistry; F32.9 Major depressive disorder, single episode, unspecified; K21.9 Gastro-esophageal reflux disease without esophagitis; Z91.81 History of falling; Z79.891 Long term (current) use of opiate analgesic; Z79.899 Other long term (current) drug therapy; Z88.2 Allergy status to sulfonamides
CPT/HCPCS: 10078